=== PATIENT | female | born 1980 | race Native Hawaiian/Other Pacific Islander ===

== ENCOUNTER 2017-12-22 06:28 | Inpatient (IN) | payer OTHER ==
--- NOTE | 2017-12-22 07:09 | XRay Report ---
FINAL REPORT EXAM: XR CHEST ROUTINE 2V HISTORY: AGUSTIN TECHNIQUE: PA and lateral chest radiographs PRIORS: None. FINDINGS: No mediastinal shift. Cardiac silhouette is not enlarged. No pneumothorax, effusion, or focal pulmonary opacity. No acute skeletal finding. IMPRESSION: No focal pulmonary opacity.
[2017-12-22 07:28] LABS: Basophils % (Auto) 0.3 % (0.0-1.8); Eosinophils # (Auto) 0.1 K/mm3 (0.0-0.4); Eosinophils % (Auto) 0.5 % (0.0-4.3); Hemoglobin 14.6 gm/dl (10.1-14.3); Lymphocytes # (Auto) 1.3 K/mm3 (1.2-5.4); Lymphocytes % (Auto) 8.3 % (13.4-35.0); Mean Corpuscular HGB Conc 33 % (30-34); Mean Corpuscular Hemoglobin 29 pg (28-32); Mean Corpuscular Volume 88 fl (79-97); Monocytes # (Auto) 0.4 K/mm3 (0.0-0.8); Monocytes % (Auto) 2.8 % (0.0-7.3); Platelet Count 294 K/mm3 (140-440); Red Blood Count 4.99 M/mm3 (3.65-5.03); Red Cell Distribution Width 13.9 % (13.2-15.2)
[2017-12-22 07:42] LABS: Alanine Aminotransferase 30 units/L (7-56); Albumin 4.7 g/dL (3.9-5); BUN/Creatinine Ratio 27; Blood Urea Nitrogen 16 mg/dL (7-17); Calcium 9.5 mg/dL (8.4-10.2); Hemolysis Index 2
--- NOTE | 2017-12-22 08:14 | Emergency Department Report ---
ED Abdominal Pain HPI - General Chief Complaint: Abdominal Pain Stated Complaint: ABD PAIN/AGUSTIN Time Seen by Provider: 12/22/17 08:09 Source: patient, family Mode of arrival: Ambulatory Limitations: Language Barrier - History of Present Illness Initial Comments: 37-year-old female with no prior past medical history presents for evaluation of abdominal pain. The patient does not speak [place]. I will obtain the history in Vietnamese. Patient states that 2 weeks ago she had similar epigastric and right upper quadrant pain. It somewhat radiates to the back. It recurred last night. She does complain of nausea and vomiting 1. She didn't measure her temperature but felt as if she had a chill. She has no history of gallstones or prior surgery. MD Complaint: abdominal pain -: week(s) Location: RUQ, epigastric Radiation: back Migration to: no migration Severity: moderate Quality: aching Consistency: intermittent Improves With: nothing Worsens With: eating Associated Symptoms: nausea, vomiting, chills - Related Data Allergies Allergy/AdvReac Type Severity Reaction Status Date / Time No Known Allergies Allergy Unverified 12/22/17 06:38 ED Review of Systems ROS: Stated complaint: ABD PAIN/AGUSTIN Other details as noted in HPI Constitutional: denies: chills, fever Eyes: denies: eye pain, eye discharge, vision change ENT: denies: ear pain, throat pain Respiratory: denies: cough, shortness of breath, wheezing Cardiovascular: denies: chest pain, palpitations Endocrine: no symptoms reported Gastrointestinal: as per HPI, abdominal pain, nausea, vomiting. denies: diarrhea Genitourinary: denies: urgency, dysuria, discharge Musculoskeletal: denies: back pain, joint swelling, arthralgia Skin: denies: rash, lesions Neurological: denies: headache, weakness, paresthesias Psychiatric: denies: anxiety, depression Hematological/Lymphatic: denies: easy bleeding, easy bruising ED Past Medical Hx - Past Medical History Previous Medical History?: No - Surgical History Past Surgical History?: No - Social History Smoking Status: Never Smoker Substance Use Type: None ED Physical Exam - General Limitations: No Limitations General appearance: alert, in no apparent distress - Head Head exam: Present: atraumatic, normocephalic - Eye Eye exam: Present: normal appearance. Absent: scleral icterus - ENT ENT exam: Present: mucous membranes moist - Neck Neck exam: Present: normal inspection - Respiratory Respiratory exam: Present: normal lung sounds bilaterally. Absent: respiratory distress - Cardiovascular Cardiovascular Exam: Present: regular rate, normal rhythm. Absent: systolic murmur, diastolic murmur, rubs, gallop - GI/Abdominal GI/Abdominal exam: Present: soft, tenderness (right upper quadrant), normal bowel sounds. Absent: distended, guarding, rebound, rigid, organomegaly, mass, bruit, pulsatile mass, hernia - Extremities Exam Extremities exam: Present: normal inspection - Back Exam Back exam: Present: normal inspection - Neurological Exam Neurological exam: Present: alert, oriented X3, CN II-XII intact. Absent: motor sensory deficit - Psychiatric Psychiatric exam: Present: normal affect, normal mood - Skin Skin exam: Present: warm, dry, intact, normal color. Absent: rash ED Course Vital Signs 12/22/17 12/22/17 12/22/17 06:32 06:44 07:57 Temperature 97.9 F Pulse Rate 76 92 H Respiratory 18 16 Rate Blood Pressure 99/56 115/85 O2 Sat by Pulse 98 98 Oximetry 12/22/17 12/22/17 08:03 08:15 Temperature Pulse Rate Respiratory Rate Blood Pressure 101/60 O2 Sat by Pulse 99 100 Oximetry - Reevaluation(s) Reevaluation #1: Discussed with Dr. Burns, admit her service. I'll continue the patient's Zosyn. She is nothing by mouth. Consult GI for possible ERCP. 12/22/17 12:11 ED Medical Decision Making - Lab Data Result diagrams: 12/22/17 07:06 12/22/17 07:06 Laboratory Results - last 24 hr 12/22/17 12/22/17 07:06 07:06 WBC 16.1 H RBC 4.99 Hgb 14.6 H Hct 44.0 H MCV 88 MCH 29 MCHC 33 RDW 13.9 Plt Count 294 Lymph % (Auto) 8.3 L [place] % (Auto) 2.8 Eos % (Auto) 0.5 Baso % (Auto) 0.3 Lymph # 1.3 [place] # 0.4 Eos # 0.1 Baso # 0.0 Seg Neutrophils % 88.1 H Seg Neutrophils # 14.2 H Sodium 140 Potassium 4.0 Chloride 101.8 Carbon Dioxide 25 Anion Gap 17 BUN 16 Creatinine 0.6 L Estimated GFR > 60 BUN/Creatinine Ratio 27 Glucose 114 H Calcium 9.5 Total Bilirubin 0.30 AST 42 H ALT 30 Alkaline Phosphatase 75 Total Protein 7.7 Albumin 4.7 Albumin/Globulin Ratio 1.6 - Radiology Data Radiology results: report reviewed interpreted by me: Multiple gallstones. Mid to distal 8.4 mm stone with mild CBD dilatation 7 mm and mild intrahepatic radical prominence. The gallbladder wall was normal and no pericystic fluid. Critical care attestation.: If time is entered above; I have spent that time in minutes in the direct care of this critically ill patient, excluding procedure time. ED Disposition Clinical Impression: Biliary colic, Choledocholithiasis Disposition: OP ADMIT IP TO THIS HOSP Is pt being admited?: Yes Does the pt Need Aspirin: No Condition: Stable Instructions: Abdominal Pain (ED) Referrals: PRIMARY CARE, [Primary Care Provider] - 3-5 Days Time of Disposition: 12:14
[2017-12-22] MEDS ORDERED: NACL 0.9% 1000 ML 1,000 ML IV ONE ×2 (08:16→12:14)
[2017-12-22] MEDS ORDERED: ZOFRAN IV ONE (08:28)
[2017-12-22] MEDS ORDERED: MORPHINE IV ONE (08:28)
[2017-12-22] MEDS ORDERED: ZOSYN/NS 3.375GM/50ML 3.375 GM/50 ML BAG IV ONE (08:29)
[2017-12-22 08:39] LABS: Bacteria,Urine 1+ /HPF (Negative); Bilirubin,Urine NEG (Negative); Blood,Urine MOD (Negative); Color,Urine Yellow (Yellow); Mucus,Urine FEW /HPF; Protein,Urine <15 mg/dL mg/dL (Negative); Urobilinogen,Urine < 2.0 mg/dL (<2.0)
[2017-12-22 08:43] LABS: HCG Qualitative,Urine Negative (Negative)
--- NOTE | 2017-12-22 09:47 | Ultrasound Report ---
ULTRASOUND ABDOMEN COMPLETE: TECHNIQUE: Transabdominal ultrasound with color Doppler interrogation. HISTORY: Epigastric pain, right upper quadrant pain. COMPARISON: none. FINDINGS: LIVER: Normal. BILIARY SYSTEM: There are numerous shadowing gallstones in the gallbladder. The gallbladder is normal size, contour and wall thickness. The common bile duct is dilated up to 7 mm in diameter. An 8.4 mm gallstone is visualized in the mid to distal common bile duct. There may be minimal intrahepatic biliary dilatation. PANCREAS: Normal. SPLEEN: Normal. KIDNEYS: Normal. AORTA/IVC: Normal. ASCITES: None. IMPRESSION: Cholelithiasis. Choledocholithiasis, mildly obstructing.
[2017-12-22] MEDS ORDERED: ZOFRAN IV PRN (12:08)
--- NOTE | 2017-12-22 14:05 | History and Physical Report ---
History of Present Illness Date of examination: 12/22/17 Date of admission: 12/22/17 11:50 Chief complaint: abd pain History of present illness: 37 yo F with no PMHx presents to the hospital with c/o epigastric abd pain, sharp, 5/10 in severity. The patient states she had pain starting 2 weeks ago that came on suddenly and resolved on its own. Today at 2 am she had the same pain that came on suddenly. It was associated with nausea and one episode of nonbloody/nonbilious emesis. No f/c, cp, sob, c/d. The pain radiates to her back. Past History Past Medical History: No medical history Past Surgical History: No surgical history Social history: no significant social history Family history: no significant family history Medications and Allergies Allergies Allergy/AdvReac Type Severity Reaction Status Date / Time No Known Allergies Allergy Unverified 12/22/17 06:38 Active Meds: Active Medications Piperacillin Sod/Tazobactam Sod (Zosyn/Ns 3.375gm/50ml) 3.375 gm in 50 mls @ 100 mls/hr IV Q6HR SUN; Protocol Sodium Chloride (Nacl 0.9% 1000 Ml) 1,000 mls @ 125 mls/hr IV ONCE ONE Stop: 12/22/17 20:13 Morphine Sulfate (Morphine) 2 mg IV Q4H PRN PRN Reason: Pain, Moderate (4-6) Ondansetron HCl (Zofran) 4 mg IV Q6H PRN PRN Reason: Nausea Review of Systems All systems: negative (10 point ROS performed and negative except for above in HPI) Exam Vital Signs Temp Pulse Resp BP Pulse Ox 97.9 F 76 18 99/56 98 12/22/17 06:32 12/22/17 06:32 12/22/17 06:32 12/22/17 06:32 12/22/17 06:32 Narrative exam: Gen: AAOx3. NAD ENT: no scleral icterus or conjunctival pallor CV: S1, S2+ Resp: CTAB, no w/r/r Abd: soft, NT, +epigastric TTP, no r/r/g Ext: no c/c/e Results - Labs 12/22/17 07:06 12/22/17 07:06 Abnormal lab results 12/22/17 12/22/17 Range/Units 07:06 07:06 WBC 16.1 H (4.5-11.0) K/mm3 Hgb 14.6 H (10.1-14.3) gm/dl Hct 44.0 H (30.3-42.9) % Lymph % (Auto) 8.3 L (13.4-35.0) % Seg Neutrophils % 88.1 H (40.0-70.0) % Seg Neutrophils # 14.2 H (1.8-7.7) K/mm3 Creatinine 0.6 L (0.7-1.2) mg/dL Glucose 114 H (65-100) mg/dL AST 42 H (5-40) units/L Diabetes panel 12/22/17 Range/Units 07:06 Sodium 140 (137-145) mmol/L Potassium 4.0 (3.6-5.0) mmol/L Chloride 101.8 (98-107) mmol/L Carbon Dioxide 25 (22-30) mmol/L BUN 16 (7-17) mg/dL Creatinine 0.6 L (0.7-1.2) mg/dL Glucose 114 H (65-100) mg/dL Calcium 9.5 (8.4-10.2) mg/dL AST 42 H (5-40) units/L ALT 30 (7-56) units/L Alkaline Phosphatase 75 (35-129) units/L Total Protein 7.7 (6.3-8.2) g/dL Albumin 4.7 (3.9-5) g/dL Calcium panel 12/22/17 Range/Units 07:06 Calcium 9.5 (8.4-10.2) mg/dL Albumin 4.7 (3.9-5) g/dL Pituitary panel 12/22/17 Range/Units 07:06 Sodium 140 (137-145) mmol/L Potassium 4.0 (3.6-5.0) mmol/L Chloride 101.8 (98-107) mmol/L Carbon Dioxide 25 (22-30) mmol/L BUN 16 (7-17) mg/dL Creatinine 0.6 L (0.7-1.2) mg/dL Glucose 114 H (65-100) mg/dL Calcium 9.5 (8.4-10.2) mg/dL Adrenal panel 12/22/17 Range/Units 07:06 Sodium 140 (137-145) mmol/L Potassium 4.0 (3.6-5.0) mmol/L Chloride 101.8 (98-107) mmol/L Carbon Dioxide 25 (22-30) mmol/L BUN 16 (7-17) mg/dL Creatinine 0.6 L (0.7-1.2) mg/dL Glucose 114 H (65-100) mg/dL Calcium 9.5 (8.4-10.2) mg/dL Total Bilirubin 0.30 (0.1-1.2) mg/dL AST 42 H (5-40) units/L ALT 30 (7-56) units/L Alkaline Phosphatase 75 (35-129) units/L Total Protein 7.7 (6.3-8.2) g/dL Albumin 4.7 (3.9-5) g/dL - Imaging US - abdomen: report reviewed, image reviewed Assessment and Plan 37 yo F with 1. cholelithiasis without evidence of cholecystitis 2. choledocolithiasis Plan: 1. NPO 2. IVF 3. IV abx - zosyn 4. repeat CMP, CBC in am 5. GI consult pending for eval for ERCP 6. eventual cholecystectomy this admit - discussed with patient and at bedside. All risks, benefits, alternatives to laparoscopic, possible open cholecystectomy discussed. All questions answered. 7. PRN pain and nausea contro; 8. ambulate ad prashanth
--- NOTE | 2017-12-22 15:15 | Gastroenterology Consultation ---
History of Present Illness - Reason for Consult Consult date: 12/22/17 Gallstones Requesting physician: JASBIR JOHNSON - History of Present Illness The patient is seen with her . She came to the ER for acute onset epigastric pain for the last 24 hours. She had one episode of vomiting to this. She is not sure it was food-triggered, but she does not want to eat now, only have liquids. She has no CP or SOB, and denies fevers of chills. On an US , she had both GS and CBD stones. She had mild elevation of her liver enzymes, but she has not had jaundice at home that she is aware. She has no family hx of gallstones, and she is not a drinker. She is on her cycle, and states she is sure she is not (and had no problems with N/V during in the past; a test was negative in the ER). Past History Past Medical History: No medical history Past Surgical History: No surgical history Social history: denies: smoking, alcohol abuse Family history: other (Gallstones) Medications and Allergies Allergies Allergy/AdvReac Type Severity Reaction Status Date / Time No Known Allergies Allergy Unverified 12/22/17 06:38 Active Meds: Active Medications Piperacillin Sod/Tazobactam Sod (Zosyn/Ns 3.375gm/50ml) 3.375 gm in 50 mls @ 100 mls/hr IV Q6HR SUN; Protocol Sodium Chloride (Nacl 0.9% 1000 Ml) 1,000 mls @ 125 mls/hr IV ONCE ONE Stop: 12/22/17 20:13 Last Admin: 12/22/17 14:25 Dose: 125 mls/hr Morphine Sulfate (Morphine) 2 mg IV Q4H PRN PRN Reason: Pain, Moderate (4-6) Ondansetron HCl (Zofran) 4 mg IV Q6H PRN PRN Reason: Nausea I HAVE REVIEWED AND RECONCILED MEDICATIONS Review of Systems - Review of Systems All systems: negative (as noted in the HPI) Exam - Constitutional Vital Signs: Temp Pulse Resp BP Pulse Ox 97.9 F 76 14 129/68 97 12/22/17 06:32 12/22/17 12:42 12/22/17 12:42 12/22/17 12:42 04/07/18 12:42 General appearance: no acute distress - EENT Eyes: PERRL, EOM intact ENT: hearing intact, clear oral mucosa - Neck Neck: supple, normal ROM - Respiratory Respiratory effort: normal Respiratory: bilateral: CTA - Cardiovascular Rhythm: regular Heart Sounds: Present: S1 & S2 Extremities: no ischemia, No edema - Gastrointestinal General gastrointestinal: Present: soft, tender (Focally in the epigastric to RUQ region but no guard), non-distended - Labs CBC & Chem 7: 12/22/17 07:06 12/22/17 07:06 Lab Results: Laboratory Results - last 24 hr 12/22/17 12/22/17 12/22/17 07:06 07:06 08:20 WBC 16.1 H RBC 4.99 Hgb 14.6 H Hct 44.0 H MCV 88 MCH 29 MCHC 33 RDW 13.9 Plt Count 294 Lymph % (Auto) 8.3 L [place] % (Auto) 2.8 Eos % (Auto) 0.5 Baso % (Auto) 0.3 Lymph # 1.3 [place] # 0.4 Eos # 0.1 Baso # 0.0 Seg Neutrophils % 88.1 H Seg Neutrophils # 14.2 H Sodium 140 Potassium 4.0 Chloride 101.8 Carbon Dioxide 25 Anion Gap 17 BUN 16 Creatinine 0.6 L Estimated GFR > 60 BUN/Creatinine Ratio 27 Glucose 114 H Calcium 9.5 Total Bilirubin 0.30 AST 42 H ALT 30 Alkaline Phosphatase 75 Total Protein 7.7 Albumin 4.7 Albumin/Globulin Ratio 1.6 Urine Color Yellow Urine Turbidity Clear Urine pH 7.0 Ur Specific [place] 1.018 Urine Protein <15 mg/dl Urine Glucose (UA) Neg Urine Ketones Neg Urine Blood Mod Urine Nitrite Neg Urine Bilirubin Neg Urine Urobilinogen < 2.0 Ur Leukocyte Esterase Neg Urine WBC (Auto) 1.0 Urine RBC (Auto) 4.0 U Epithel Cells (Auto) 2.0 Urine Bacteria (Auto) 1+ Urine Mucus Few Urine Yeast (Budding) 1+ Urine HCG, Qual Negative Assessment and Plan - Patient Problems (1) Choledocholithiasis Current Visit: Yes Status: Acute Plan to address problem: - Will plan ERCP with stone removal, followed by (likely) cholecystectomy. - Continue current abx for possibly mild acute cholecystitis. - NPO after Mn, but may have clears today. - DVT PPY per primary team. - Discussed ERCP risks/benefits with patient and ; they are agreeable with proceeding.
[2017-12-22] MEDS: ZOSYN/NS 3.375GM/50ML 3.375 GM/50 ML BAG IV SCH (19:00)
[2017-12-23] MEDS: ZOSYN/NS 3.375GM/50ML 3.375 GM/50 ML BAG IV SCH ×4 (01:13→22:01)
[2017-12-23] MEDS ORDERED: NACL 0.9% 1000 ML 1,000 ML IV SCH (08:00)
[2017-12-23] MEDS ORDERED: WATER FOR IRRIG STERILE IR ONE (08:02)
[2017-12-23] MEDS ORDERED: NACL 0.9% 100 ML ONE (08:13)
--- NOTE | 2017-12-23 08:29 | Anesthesia Day of Surgery ---
Anesthesia Day of Surgery - Day of Surgery Patient Examined: Yes Patient H&P Reviewed: Yes Patient is NPO: Yes
--- NOTE | 2017-12-23 08:29 | Anesthesia Consultation ---
Anesthesia Consult and Med Hx Date of service: 12/23/17 - Airway Anesthetic Teeth Evaluation: Good ROM Head & Neck: Adequate Mental/Hyoid Distance: Adequate Mallampati Class: Class II Intubation Access Assessment: Probably Good - Pre-Operative Health Status ASA Pre-Surgery Classification: ASA2 Proposed Anesthetic Plan: MAC - Gastrointestinal Hx Gastroesophageal Reflux Disease: Yes - Endocrine Hx Liver Disease: Yes (gallbladder disease) - Other Systems Hx Alcohol Use: No
[2017-12-23] MEDS ORDERED: VERSED ONE (08:36)
[2017-12-23] MEDS ORDERED: DIPRIVAN 10 MG/ML IV ONE ×2 (08:36)
[2017-12-23] MEDS ORDERED: DILAUDID ONE (08:36)
--- NOTE | 2017-12-23 09:38 | Post Operative Note ---
Pre-op diagnosis: Choledocholithiasis Post-op diagnosis: same Findings: 1. Ampulla normal 2. CBD cannulated with Fusiontome/0.035guidewire - Multiple filling defects; CBD mild dilation (7mm) - Medium sphincterotomy - 9mm balloon swept through 4 times with 7 yellow stones removed (1-4mm) 3. Gallbladder filled during exam; no cystic duct obstruction - Multiple stones throughout the gallbladder, including some in cystic duct 4. PD not cannulated Procedure: ERCP with sphincterotomy and biliary balloon sweeping of CBD Anesthesia: MAC Surgeon: BEN BASURTO Estimated blood loss: minimal Pathology: none Specimen disposition: other (N/A) Condition: stable Disposition: floor (Recs: 1. OK for clear liquids today pending surgery recs. 2. OK to proceed with CCY. 3. Continue antibiotics until post-CCY given cholecystitis. 4. Patient at risk of more stones in CBD given large number of stones in cystic duct; if LFTs rise post-CCY, will need repeat ERCP.)
[2017-12-23] MEDS: MORPHINE IV PRN ×2 (10:20→13:52)
--- NOTE | 2017-12-23 10:43 | Fluoroscopy Report ---
FLUOROSCOPY ERCP BILIARY DUCT History: Gallstones Findings: Fluoroscopy was provided by radiology during ERCP by gastroenterology. 14 fluoroscopic images were captured. The images demonstrate multiple filling defects within the gallbladder and common bile duct consistent with gallstones. The common bile duct stones were removed by balloon sweep technique. Papillotomy was performed. The pancreatic duct was not injected. Please correlate with the procedural report as needed. Impression: Removal of common bile duct stones during ERCP.
[2017-12-23] MEDS: LACTATED RINGERS 1,000 ML IV SCH ×2 (11:19→20:42)
--- NOTE | 2017-12-23 12:10 | Operative Report ---
PROCEDURE PERFORMED: Endoscopic retrograde cholangiopancreatography with biliary sphincterotomy and balloon sweeping of the common bile duct. PREOPERATIVE DIAGNOSIS: Choledocholithiasis. POSTOPERATIVE DIAGNOSIS: Choledocholithiasis. ENDOSCOPIST: Alex Fernandes MD. INSTRUMENT: [employer] video endoscope. MEDICATIONS: MAC anesthesia by [facility]. COMPLICATIONS: No apparent complications. ESTIMATED BLOOD LOSS: Minimal. SPECIMENS: None. IMPLANTS: None. ASSISTANTS: None. CONDITION AT COMPLETION: Stable. TECHNIQUE: The patient was informed of the risks and benefits of the procedure. She signed the informed consent to proceed. She was placed in the prone position. The above sedative medications were given. Her vital signs remained stable throughout the procedure. The instrument was advanced under direct visualization from the mouth to the ampulla. At that point, the bowel was insufflated. The ampulla was normal in shape and size. The pancreatic duct was not cannulated or injected. The common bile duct was cannulated using a fusion sphincterotome and a 0.035 guidewire. A cholangiogram showed multiple filling defects in the common bile duct as well as mild dilation to 7 mm. A medium sized sphincterotomy was performed and a 9 mm balloon was swept 4 times through the common bile duct with removal of several stones. At the end of the procedure, there was a good cholangiogram with no significant retained stones and the procedure was terminated. FINDINGS: 1. Ampulla was normal in shape and size. 2. The common bile duct was cannulated using a fusion tome/0.035 guidewire. a. Multiple filling defects were present in a mildly dilated common bile duct (7 mm). b. A medium sphincterotomy was performed. c. A 9 mm balloon was swept 4 times through the common bile duct with removal of 7 gallstones, ranging in size from 1 mm to 4 mm. d. The cholangiogram at the end of the procedure showed no significant stones in the distal common bile duct. 3. The gallbladder filled during the exam indicating no obstruction of the cystic duct. a. However, multiple stones were noted throughout the gallbladder and extending down into the cystic duct finding. b. The pancreatic duct was not cannulated or injected during this procedure. RECOMMENDATIONS: 1. Okay for clear liquids today pending Surgery recommendations. 2. Okay to proceed with cholecystectomy. 3. I would continue antibiotics until after cholecystectomy given the patient's acute cholecystitis. 4. The patient is at risk for more gallstones in the common bile duct. Given the large number of stones seen in the cystic duct extending into the gallbladder; if her liver enzymes rise after the cholecystectomy, she will need a repeat ERCP. JOB# [id number] VIRGILIO/NTS
[2017-12-23 14:12] LABS: Hematocrit 39.2 % (30.3-42.9); Hemoglobin 13.2 gm/dl (10.1-14.3); Mean Corpuscular HGB Conc 34 % (30-34); Mean Corpuscular Hemoglobin 30 pg (28-32); Mean Corpuscular Volume 89 fl (79-97); Platelet Count 253 K/mm3 (140-440); Red Blood Count 4.41 M/mm3 (3.65-5.03); Red Cell Distribution Width 13.6 % (13.2-15.2)
[2017-12-23 14:36] LABS: Alanine Aminotransferase 294 units/L (7-56); Albumin 3.6 g/dL (3.9-5); BUN/Creatinine Ratio 15; Blood Urea Nitrogen 6 mg/dL (7-17); Calcium 8.1 mg/dL (8.4-10.2); Hemolysis Index 4
--- NOTE | 2017-12-23 16:01 | Progress Note ---
Assessment and Plan 37 yo F with 1. acute cholecystitis 2. choledocolithiasis s/p ERCP and sphincterotomy, multiple CBD stones retrieved Plan: 1. clear liquids, NPO p MN 2. IVF 3. IV abx - zosyn 4. repeat CMP, Bilis, lipase in am - LFTs and bili elevated today 7. Plan for cholecystectomy in am 12/23/17 - discussed with patient and at bedside. All risks, benefits, alternatives to laparoscopic, possible open cholecystectomy discussed. All questions answered. Consent obtained 7. PRN pain and nausea control 8. ambulate ad prashanth Subjective Date of service: 12/23/17 Narrative: Pt seen and examined. No overnight events. s/p ERCP this am. c/o mild epigastric abd pain. Feels hungry. No f/c, cp, sob, n/v Objective Vital Signs - 12hr 12/23/17 12/23/17 12/23/17 07:00 08:04 08:21 Temperature 99.2 F 97.2 F L 97.2 F L Pulse Rate 67 90 90 Respiratory 20 15 15 Rate Blood Pressure 97/63 97/63 Blood Pressure 88/55 [Left] O2 Sat by Pulse 98 99 99 Oximetry 12/23/17 12/23/17 12/23/17 09:21 09:36 09:51 Temperature 98.2 F Pulse Rate 86 80 70 Respiratory 15 15 15 Rate Blood Pressure 110/65 100/56 93/57 Blood Pressure [Left] O2 Sat by Pulse 99 99 100 Oximetry 12/23/17 12/23/17 12/23/17 10:14 10:20 13:52 Temperature 98.4 F Pulse Rate 62 Respiratory 18 18 14 Rate Blood Pressure Blood Pressure 97/51 [Left] O2 Sat by Pulse 100 Oximetry - General physical appearance Narrative Exam: Gen: AAOx3. NAD ENT: no scleral icterus CV: S1, S2+ Resp: even and unlabored Abd: soft, ND, mild epigastric TTP. no r/r/g Ext: no c/c/e - Labs 12/23/17 14:04 12/23/17 14:04 Diabetes panel 12/23/17 Range/Units 14:04 Sodium 142 (137-145) mmol/L Potassium 3.7 (3.6-5.0) mmol/L Chloride 105.4 (98-107) mmol/L Carbon Dioxide 23 (22-30) mmol/L BUN 6 L (7-17) mg/dL Creatinine 0.4 L (0.7-1.2) mg/dL Glucose 85 (65-100) mg/dL Calcium 8.1 L (8.4-10.2) mg/dL AST 319 H (5-40) units/L ALT 294 H (7-56) units/L Alkaline Phosphatase 99 (35-129) units/L Total Protein 5.8 L D (6.3-8.2) g/dL Albumin 3.6 L (3.9-5) g/dL Calcium panel 12/23/17 Range/Units 14:04 Calcium 8.1 L (8.4-10.2) mg/dL Albumin 3.6 L (3.9-5) g/dL Pituitary panel 12/23/17 Range/Units 14:04 Sodium 142 (137-145) mmol/L Potassium 3.7 (3.6-5.0) mmol/L Chloride 105.4 (98-107) mmol/L Carbon Dioxide 23 (22-30) mmol/L BUN 6 L (7-17) mg/dL Creatinine 0.4 L (0.7-1.2) mg/dL Glucose 85 (65-100) mg/dL Calcium 8.1 L (8.4-10.2) mg/dL Adrenal panel 12/23/17 Range/Units 14:04 Sodium 142 (137-145) mmol/L Potassium 3.7 (3.6-5.0) mmol/L Chloride 105.4 (98-107) mmol/L Carbon Dioxide 23 (22-30) mmol/L BUN 6 L (7-17) mg/dL Creatinine 0.4 L (0.7-1.2) mg/dL Glucose 85 (65-100) mg/dL Calcium 8.1 L (8.4-10.2) mg/dL Total Bilirubin 1.30 H (0.1-1.2) mg/dL AST 319 H (5-40) units/L ALT 294 H (7-56) units/L Alkaline Phosphatase 99 (35-129) units/L Total Protein 5.8 L D (6.3-8.2) g/dL Albumin 3.6 L (3.9-5) g/dL
[2017-12-24] MEDS: ZOSYN/NS 3.375GM/50ML 3.375 GM/50 ML BAG IV SCH ×4 (00:30→23:11)
[2017-12-24] MEDS: LACTATED RINGERS 1,000 ML IV SCH ×2 (07:04→23:11)
[2017-12-24 07:32] LABS: Alanine Aminotransferase 361 units/L (7-56); Albumin 3.6 g/dL (3.9-5); BUN/Creatinine Ratio 12; Bilirubin,Direct 0.3 mg/dL (0-0.2); Blood Urea Nitrogen 6 mg/dL (7-17); Calcium 8.8 mg/dL (8.4-10.2); Hemolysis Index 7; Lipase 40 units/L (13-60)
--- NOTE | 2017-12-24 12:49 | Gastroenterology Progress Note ---
Assessment and Plan GI: s/p ercp w/ stone removal w/ noted stones cystic duvt - for red chuck today - will await lap chuck findings and consider further GI intervention - continue to follow labs - will follow Subjective Date of service: 12/24/17 Interval history: - no specific GI complaints overnight Objective - Constitutional Vitals: Temp Pulse Resp BP Pulse Ox 98.5 F 74 14 93/64 98 12/24/17 07:55 12/24/17 07:55 12/24/17 07:55 12/24/17 07:55 12/24/17 07:55 General appearance: no acute distress - EENT Eyes: PERRL - Respiratory Respiratory: bilateral: CTA - Cardiovascular Rhythm: regular Heart Sounds: Present: S1 & S2 - Gastrointestinal General gastrointestinal: Present: soft, non-tender, non-distended - Labs CBC & Chem 7: 12/23/17 14:04 12/24/17 06:11 Labs: Laboratory Results - last 24 hr 12/23/17 12/23/17 12/24/17 14:04 14:04 06:11 WBC 9.0 RBC 4.41 Hgb 13.2 Hct 39.2 MCV 89 MCH 30 MCHC 34 RDW 13.6 Plt Count 253 Sodium 142 141 Potassium 3.7 3.8 Chloride 105.4 104.9 Carbon Dioxide 23 25 Anion Gap 17 15 BUN 6 L 6 L Creatinine 0.4 L 0.5 L Estimated GFR > 60 > 60 BUN/Creatinine Ratio 15 12 Glucose 85 90 Calcium 8.1 L 8.8 Total Bilirubin 1.30 H 1.10 Direct Bilirubin 0.3 H Indirect Bilirubin 0.8 AST 319 H 227 H ALT 294 H 361 H Alkaline Phosphatase 99 102 Total Protein 5.8 L D 5.8 L Albumin 3.6 L 3.6 L Albumin/Globulin Ratio 1.6 1.6 Lipase 40
--- NOTE | 2017-12-24 15:22 | Anesthesia Consultation ---
Anesthesia Consult and Med Hx Date of service: 12/24/17 - Airway Anesthetic Teeth Evaluation: Good ROM Head & Neck: Adequate Mental/Hyoid Distance: Adequate Mallampati Class: Class I Intubation Access Assessment: Good - Pulmonary Exam CTA: Yes - Cardiac Exam Cardiac Exam: RRR - Pre-Operative Health Status ASA Pre-Surgery Classification: ASA1 Proposed Anesthetic Plan: General - Gastrointestinal Hx Gastroesophageal Reflux Disease: Yes - Endocrine Hx Liver Disease: Yes (gallbladder disease) - Other Systems Hx Alcohol Use: No
--- NOTE | 2017-12-24 15:23 | Anesthesia Day of Surgery ---
Anesthesia Day of Surgery - Day of Surgery Patient Examined: Yes Patient H&P Reviewed: Yes Patient is NPO: Yes
[2017-12-24] MEDS ORDERED: DILAUDID IV PRN (15:27)
[2017-12-24] MEDS ORDERED: TORADOL IV PRN (15:27)
--- NOTE | 2017-12-24 18:19 | Progress Note ---
Assessment and Plan 37 yo F with 1. acute cholecystitis 2. choledocolithiasis Plan: 1. OR tomorrow 12/25 2. clears tonight, NPO p MN 3. prn pain and nausea control 4. DVT ppx - SCDs 5. IV abx 6. labs in am Subjective Date of service: 12/24/17 Narrative: Pt seen and examined. No complaints. Abd pain controlled. Tolerating liquids. Plan was for lap chuck today however due to OR emergencies, the case had to be rescheduled until tomorrow. I spoke with the patient and she understands. Objective Vital Signs - 12hr 12/24/17 12/24/17 12/24/17 07:55 14:25 14:50 Temperature 98.5 F 99.6 F 99.6 F Pulse Rate 74 83 83 Respiratory 14 14 14 Rate Blood Pressure 93/64 98/59 98/59 O2 Sat by Pulse 98 99 99 Oximetry - General physical appearance Narrative Exam: Gen: AAOx3. NAD CV: S1, S2+ Resp: even and unlabored Abd: soft, NT, ND Ext: no c/c/e - Labs 12/23/17 14:04 12/24/17 06:11 Diabetes panel 12/24/17 Range/Units 06:11 Sodium 141 (137-145) mmol/L Potassium 3.8 (3.6-5.0) mmol/L Chloride 104.9 (98-107) mmol/L Carbon Dioxide 25 (22-30) mmol/L BUN 6 L (7-17) mg/dL Creatinine 0.5 L (0.7-1.2) mg/dL Glucose 90 (65-100) mg/dL Calcium 8.8 (8.4-10.2) mg/dL AST 227 H (5-40) units/L ALT 361 H (7-56) units/L Alkaline Phosphatase 102 (35-129) units/L Total Protein 5.8 L (6.3-8.2) g/dL Albumin 3.6 L (3.9-5) g/dL Calcium panel 12/24/17 Range/Units 06:11 Calcium 8.8 (8.4-10.2) mg/dL Albumin 3.6 L (3.9-5) g/dL Pituitary panel 12/24/17 Range/Units 06:11 Sodium 141 (137-145) mmol/L Potassium 3.8 (3.6-5.0) mmol/L Chloride 104.9 (98-107) mmol/L Carbon Dioxide 25 (22-30) mmol/L BUN 6 L (7-17) mg/dL Creatinine 0.5 L (0.7-1.2) mg/dL Glucose 90 (65-100) mg/dL Calcium 8.8 (8.4-10.2) mg/dL Adrenal panel 12/24/17 Range/Units 06:11 Sodium 141 (137-145) mmol/L Potassium 3.8 (3.6-5.0) mmol/L Chloride 104.9 (98-107) mmol/L Carbon Dioxide 25 (22-30) mmol/L BUN 6 L (7-17) mg/dL Creatinine 0.5 L (0.7-1.2) mg/dL Glucose 90 (65-100) mg/dL Calcium 8.8 (8.4-10.2) mg/dL Total Bilirubin 1.10 (0.1-1.2) mg/dL AST 227 H (5-40) units/L ALT 361 H (7-56) units/L Alkaline Phosphatase 102 (35-129) units/L Total Protein 5.8 L (6.3-8.2) g/dL Albumin 3.6 L (3.9-5) g/dL
[2017-12-25] MEDS ORDERED: MARCAINE 0.5% INFILTRATI ONE ×2
[2017-12-25] MEDS ORDERED: XYLOCAINE 1% 20 mL INFILTRATI ONE ×2
[2017-12-25] MEDS ORDERED: NACL 0.9% IR ONE ×2
[2017-12-25] MEDS: ZOSYN/NS 3.375GM/50ML 3.375 GM/50 ML BAG IV SCH ×4 (02:02→19:21)
[2017-12-25 07:32] LABS: Alanine Aminotransferase 219 units/L (7-56); Albumin 3.5 g/dL (3.9-5); BUN/Creatinine Ratio 22; Blood Urea Nitrogen 11 mg/dL (7-17); Calcium 8.6 mg/dL (8.4-10.2); Hemolysis Index 4
[2017-12-25 08:01] LABS: Bilirubin,Direct < 0.2 mg/dL (0-0.2)
[2017-12-25] MEDS ORDERED: XYLOCAINE 1% 20 mL ONE (14:31)
[2017-12-25] MEDS ORDERED: MARCAINE 0.5% 30 ML INFILTRATI ONE (14:31)
[2017-12-25] MEDS ORDERED: DIPRIVAN 10 MG/ML IV ONE (15:03)
[2017-12-25] MEDS ORDERED: XYLOCAINE MPF 2% ONE (15:03)
[2017-12-25] MEDS ORDERED: ZEMURON IV ONE (15:03)
[2017-12-25] MEDS ORDERED: DILAUDID ONE (15:04)
[2017-12-25] MEDS ORDERED: LACTATED RINGERS 1,000 ML ONE (15:48)
[2017-12-25] MEDS ORDERED: ROBINUL ONE (16:18)
[2017-12-25] MEDS ORDERED: NEOSTIGMINE ONE (16:19)
--- NOTE | 2017-12-25 16:44 | Operative Report ---
Operative Report Operative Report: Date of operation: 12/25/17 Preoperative diagnosis: Acute cholecystitis, choledocholithiasis postOperative diagnoses: Same as above Procedure performed: Laparoscopic cholecystectomy Surgeon: Mike Burns DO Anesthesia: Gen. endotracheal anesthesia Findings: Gallbladder neck with multiple stones Specimen: Gallbladder Estimated blood loss: <10cc Complications: None Disposition: Stable to PACU HPI an indication: 37-year-old female who presented to the hospital with complaints of epigastric abdominal pain. He was found to have choledocolithiasis and cholelithiasis on RUQ u/s. The patient underwent an ercp with sphincterotomy and multiple stones were retrieved. The patient was then consented for a laparoscopic possible open cholecystectomy. All risks, benefits , and alternatives were discussed and questions answered. Procedure in detail: The patient was identified in the preoperative area and taken back to the operating room, placed on the operating room table in supine position. After anesthesia was induced, the abdomen was prepped and draped in usual sterile fashion and timeout was performed. Local anesthetic was infiltrated into all of the skin incision sites. Using a 11 blade a supraumbilical incision was made and through this a Veress needle was used to insufflate the abdomen. The position of the veress needle was confirmed with the saline drop test and the abdomen was then insufflated to 15 mmHg. The veress needle was then removed and a 5 mm trocar placed using Optiview trocar. The abdomen was then inspected and there was no underlying injury to any of the abdominal contents. An additional 12 mm subxyphoid port, and 2, 5mm RUQ ports were then placed under direct visualization. The patient was then placed into reverse Trendelberg and tilted to the left. The gallbladder was visualized and there were multiple stones in the gallbladder neck. The gallbladder was grasped and lifted cephalad. The cystic duct and artery were then carefully dissected and the critical view obtained, and the cystic duct and artery were the only two structures seen entering the gallbladder. Three clips were then placed on the proximal aspect of the cystic duct and one clip distally. This was transected using endoshears and a PDS endoloop was placed securely below the clips. 1 clip was placed on the proximal aspect of the cystic artery proximally and one distal and the cystic artery was transected using electrocautery. The gallbladder was taken off the liver bed using hook electrocautery. The gallbladder was placed into a Endo Catch bag and removed from the abdomen via the 12mm port. The gallbladder fossa was then inspected and a small amount of bleeding near the area of the clips was controlled with electrocautery and Chikis powder. There was no further identifiable bleeding or bile leakage. Hemostasis was ensured. The clips on the cystic duct and artery were visualized and intact. The patient was then placed into neutral position and Morison's pouch was irrigated and the irrigant returned clear. The 12 mm port fascia was closed with 2, interrupted 0 Vicryl sutures. The remaining ports were removed under direct visualization. Skin incisions were closed with 4-0 Monocryl subcuticular stitches and skin glue. At the end case all sponge, instrument, sharp counts were correct 2. The patient was awoken from anesthesia, extubated, taken to PACU in stable condition.
--- NOTE | 2017-12-25 16:48 | Discharge Summary ---
Providers - Providers Date of Admission: 12/22/17 11:50 Date of discharge: 12/25/17 Attending physician: JASBIR JOHNSON DO 12/22/17 11:50 Consult to Physician [CONS] Urgent Comment: Consulting Provider: BEN BASURTO Physician Instructions: Reason For Exam: ERCP 12/22/17 12:43 Consult to Physician [CONS] Urgent Comment: Consulting Provider: JASBIR JOHNSON Physician Instructions: Reason For Exam: gallbladder disease Primary care physician: OPERATIONS ADVISOR Hospitalization Reason for admission: choledocolithiasis, cholecystitis Condition: Stable Pertinent studies: RUQ u/s Procedures: ERCP with sphincterotomy. Laparoscopic cholecystectomy Hospital course: 37-year-old female presented to the hospital with epigastric pain. She was found to have cholelithiasis and choledocholithiasis. She underwent an ERCP with sphincterotomy and retrieval of common bile duct stones. She was kept on antibiotics and taken to the operating room for laparoscopic cholecystectomy. Postoperative course was uncomplicated and the patient was discharged home in stable condition. Disposition: DC-01 TO HOME OR SELFCARE Time spent for discharge: 20 minutes Core Measure Documentation - Palliative Care Palliative Care/ Comfort Measures: Not Applicable - Core Measures Any of the following diagnoses?: none Exam - Physical Exam Narrative exam: Gen: AAOx3. NAD CV: S1, S2+ Resp: even and unlabored Abd: soft, NT, ND Ext: no c/c/e - Constitutional Vitals: Temp Pulse Resp BP Pulse Ox 98.5 F 69 16 82/46 98 12/25/17 07:39 12/25/17 07:39 12/25/17 07:39 12/25/17 07:39 12/25/17 07:39 Plan Activity: other (avoid lifting more than 20 pounds for the next [address] while taking narcotic pain medications) Diet: regular Wound: open to air (may shower tomorrow, pat incisions dry. Do not scrub or submerge incisions in water.) Follow up with: PRIMARY CAREMD [Primary Care Provider] - 3-5 Days JASBIR JOHNSON DO [Staff Physician] - 14 Days Forms: Work/School Release Form Prescriptions: HYDROcodone/APAP 5-325 [[place] 5/325] 1 each PO Q6HR PRN #15 tablet PRN Reason: Pain
[2017-12-25] MEDS ORDERED: DEMEROL IV PRN (17:04)
[2017-12-25] MEDS ORDERED: DEMEROL ONE (17:05)
--- NOTE | 2017-12-25 18:30 | Event Note ---
Date: 12/25/17 - pt surgical results reviewed - pt for d/c per surgery team - no need further GI intervention - will sign off, call if needed
[2017-12-25] MEDS: ULTRAM PO PRN (21:05)
[2017-12-26] MEDS: ULTRAM PO PRN (09:16)
[2017-12-26 09:54] VITALS: BP 98/56
[2017-12-26 13:17] LABS: Alanine Aminotransferase 144 units/L (7-56); Albumin 3.6 g/dL (3.9-5); BUN/Creatinine Ratio 23; Blood Urea Nitrogen 9 mg/dL (7-17); Calcium 8.5 mg/dL (8.4-10.2); Hemolysis Index 5
[2017-12-26 13:19] LABS: Bilirubin,Direct < 0.2 mg/dL (0-0.2)
--- NOTE | 2017-12-26 13:28 | Progress Note ---
Assessment and Plan 37 yo F s/p laparoscopic cholecystectomy POD 1 1. dc home - please refer to dc summary from 12/25/17 2. reg diet 3. OOB/ambulate 4. follow up in surgery office in 2 weeks Subjective Date of service: 12/26/17 Narrative: Pt seen and examined. She c/o incisional pain and pain in right shoulder. No n/ v. Tolerating diet. No fevers. The patient was to be discharged post op yesterday. This was verbally discussed with nursing and documented in nursing notes from yesterday. The patient was not discharged. Nursing this am states no dc order was placed. Physician did not receive any phone calls or pages for clarification or placement of dc order. Objective Vital Signs - 12hr 12/26/17 12/26/17 08:34 08:35 Temperature 99.0 F Pulse Rate 89 89 Respiratory 18 Rate Blood Pressure 98/56 O2 Sat by Pulse 96 96 Oximetry - General physical appearance Narrative Exam: Gen: AAOx3. NAD CV: S1, S2+ Resp: No audible wheezes Abd: soft, ND, +RUQ TTP near incisions. Incisions c/d/i, No r/r/g Ext: no c/c/e - Labs 12/23/17 14:04 12/26/17 11:34 Diabetes panel 12/26/17 Range/Units 11:34 Sodium 141 (137-145) mmol/L Potassium 3.5 L (3.6-5.0) mmol/L Chloride 104.2 (98-107) mmol/L Carbon Dioxide 21 L (22-30) mmol/L BUN 9 (7-17) mg/dL Creatinine 0.4 L (0.7-1.2) mg/dL Glucose 134 H (65-100) mg/dL Calcium 8.5 (8.4-10.2) mg/dL AST 36 (5-40) units/L ALT 144 H (7-56) units/L Alkaline Phosphatase 74 (35-129) units/L Total Protein 5.9 L (6.3-8.2) g/dL Albumin 3.6 L (3.9-5) g/dL Calcium panel 12/26/17 Range/Units 11:34 Calcium 8.5 (8.4-10.2) mg/dL Albumin 3.6 L (3.9-5) g/dL Pituitary panel 12/26/17 Range/Units 11:34 Sodium 141 (137-145) mmol/L Potassium 3.5 L (3.6-5.0) mmol/L Chloride 104.2 (98-107) mmol/L Carbon Dioxide 21 L (22-30) mmol/L BUN 9 (7-17) mg/dL Creatinine 0.4 L (0.7-1.2) mg/dL Glucose 134 H (65-100) mg/dL Calcium 8.5 (8.4-10.2) mg/dL Adrenal panel 12/26/17 Range/Units 11:34 Sodium 141 (137-145) mmol/L Potassium 3.5 L (3.6-5.0) mmol/L Chloride 104.2 (98-107) mmol/L Carbon Dioxide 21 L (22-30) mmol/L BUN 9 (7-17) mg/dL Creatinine 0.4 L (0.7-1.2) mg/dL Glucose 134 H (65-100) mg/dL Calcium 8.5 (8.4-10.2) mg/dL Total Bilirubin 0.80 (0.1-1.2) mg/dL AST 36 (5-40) units/L ALT 144 H (7-56) units/L Alkaline Phosphatase 74 (35-129) units/L Total Protein 5.9 L (6.3-8.2) g/dL Albumin 3.6 L (3.9-5) g/dL
== END 2017-12-26 17:20 | disposition home or self-care (01) | DRG 419 ==
LOC: ED 06:28 → 3A 11:50
PROVIDERS: ADMIT Internal Medicine; ATTEND Surgery
PROC: 0F798ZZ Dilation of Common Bile Duct, Via Natural or Artificial Opening Endoscopic (ICD-10-PCS; 2017-12-23)
PROC: BF131ZZ Fluoroscopy of Gallbladder and Bile Ducts using Low Osmolar Contrast (ICD-10-PCS; 2017-12-23)
PROC: 0FT44ZZ Resection of Gallbladder, Percutaneous Endoscopic Approach (ICD-10-PCS; principal; 2017-12-25)
DX: K80.62 Calculus of gallbladder and bile duct with acute cholecystitis without obstruction (principal); Z83.79 Family history of other diseases of the digestive system
CPT/HCPCS: 36415; 71046; 74328; 76700; 80053; 81001; 81025; 82248; 83690; 85025; 85027; 88304; 96361; 96365; 96375; A4217; C1726; J1170; J2175; J2250; J2270; J2405; J2543; J2704; J2710; J7030; J7120; Q9967